=== PATIENT | female | born 1960 | race Caucasian/White ===

== ENCOUNTER 2023-01-08 16:52 | Inpatient (IN) | payer MEDICARE ==
[~2023-01-08] VITALS: Ht 162.6 cm; Wt 68.0 kg
[2023-01-08] MEDS ORDERED: KETOROLAC TROMETHAMINE INJ 30 MG/ML VIAL ONE (17:59)
[2023-01-08] MEDS ORDERED: KETOROLAC TROMETHAMINE INJ 60 MG/2 ML VIAL IM ONE (18:00)
[2023-01-08 19:53] LABS: BASOPHILS % (AUTO) 0.4 % (0.0-2.0); EOSINOPHILS % (AUTO) 0.6 % (0.0-6.0); HEMATOCRIT 35 % (33-45); HEMOGLOBIN 11.8 g/dL (11.5-14.8); LYMPHOCYTES # (AUTO) 1.4 K/uL (0.8-4.8); LYMPHOCYTES % (AUTO) 29.5 % (20.0-44.0); MEAN CORPUSCULAR HEMOGLOBIN 34 PG (26.0-33.0); MEAN CORPUSCULAR HGB CONC 34 g/dl (31.0-36.0); MEAN CORPUSCULAR VOLUME 101 fL (82-100); MONOCYTES # (AUTO) 0.5 K/uL (0.1-1.30); MONOCYTES % (AUTO) 10.6 % (2.0-12.0); NEUTROPHILS # (AUTO) 2.7 K/uL (1.8-8.9); NEUTROPHILS % (AUTO) 58.9 % (43.0-81.0); PLATELET COUNT (AUTO) 307 K/uL (150-450); RED BLOOD CELL COUNT(AUTO) 3.49 MIL/uL (4.0-5.2); RED CELL DISTRIBUTION WIDTH 13.1 % (11.5-15.0); WHITE BLOOD COUNT (AUTO) 4.6 K/uL (4.3-11.0)
[2023-01-08 20:03] LABS: CALCIUM, SERUM 9.2 mg/dL (8.5-10.1); CREATININE 0.9 mg/dL (0.6-1.3); POTASSIUM 3.6 mmol/L (3.5-5.1)
[2023-01-08 20:13] LABS: ALBUMIN 3.7 g/dL (3.4-5.0); BILIRUBIN,DIRECT 0.1 mg/dL (0.0-0.2); BILIRUBIN,TOTAL 0.4 mg/dL (0.2-1.0); TOTAL PROTEIN, SERUM 7.7 g/dL (6.4-8.2)
[2023-01-08 22:36] VITALS: BP 153/89; TEMP 98; O2SAT 95
[2023-01-08] MEDS ORDERED: ONDANSETRON HCL/PF 4 MG/2 ML VIAL IVP PRN (23:00)
[2023-01-08] MEDS ORDERED: ACETAMINOPHEN 325 MG TABLET PO PRN (23:00)
[2023-01-08] MEDS: HYDROCODONE/APAP 5/325MG TABLET PO PRN (23:06)
[2023-01-08] MEDS: ENOXAPARIN SODIUM 40 MG/0.4 ML DISP.SYRIN SQ SCH (23:06)
[2023-01-09 07:00] VITALS: BP 123/71; TEMP 97.7; O2SAT 96
[2023-01-09 07:40] LABS: BASOPHILS % (AUTO) 0.5 % (0.0-2.0); EOSINOPHILS % (AUTO) 1.3 % (0.0-6.0); HEMATOCRIT 34 % (33-45); HEMOGLOBIN 11.4 g/dL (11.5-14.8); LYMPHOCYTES # (AUTO) 1.3 K/uL (0.8-4.8); LYMPHOCYTES % (AUTO) 35.5 % (20.0-44.0); MEAN CORPUSCULAR HEMOGLOBIN 34 PG (26.0-33.0); MEAN CORPUSCULAR HGB CONC 34 g/dl (31.0-36.0); MEAN CORPUSCULAR VOLUME 100 fL (82-100); MONOCYTES # (AUTO) 0.5 K/uL (0.1-1.30); MONOCYTES % (AUTO) 12.4 % (2.0-12.0); NEUTROPHILS # (AUTO) 1.9 K/uL (1.8-8.9); NEUTROPHILS % (AUTO) 50.3 % (43.0-81.0); PLATELET COUNT (AUTO) 275 K/uL (150-450); RED BLOOD CELL COUNT(AUTO) 3.38 MIL/uL (4.0-5.2); RED CELL DISTRIBUTION WIDTH 13.5 % (11.5-15.0); WHITE BLOOD COUNT (AUTO) 3.7 K/uL (4.3-11.0)
[2023-01-09 08:00] LABS: MAGNESIUM 2.2 mg/dL (1.8-2.4); PHOSPHORUS 4.1 mg/dL (2.5-4.9); POTASSIUM 3.3 mmol/L (3.5-5.1)
[2023-01-09] MEDS: HYDROCODONE/APAP 5/325MG TABLET PO PRN (08:22)
[2023-01-09] MEDS ORDERED: OLAN15TA3 PO (08:51)
[2023-01-09] MEDS ORDERED: MAGN400O6 PO (08:51)
[2023-01-09] MEDS ORDERED: ATOR10TA PO (08:51)
[2023-01-09] MEDS ORDERED: ACET-868 PO (08:51)
[2023-01-09] MEDS ORDERED: BISA10SU11 RC (08:51)
[2023-01-09] MEDS ORDERED: EMTR1TAB17 PO (08:51)
[2023-01-09] MEDS ORDERED: ERGO500093 PO (08:51)
[2023-01-09] MEDS ORDERED: DOLU50TA PO (08:51)
[2023-01-09] MEDS ORDERED: FERR325T23 PO (08:51)
[2023-01-09] MEDS ORDERED: NA P133E RC (08:51)
[2023-01-09] MEDS ORDERED: POTASSIUM CHLORIDE 20 MEQ TAB.PRT.SR PO ONE (11:00)
[2023-01-09 16:00] VITALS: BP 144/77; TEMP 97.6; O2SAT 96
[2023-01-09] MEDS: MORPHINE SULFATE INJ 2 MG/ML DISP.SYRIN IV PRN (18:21)
[2023-01-09] MEDS: ENOXAPARIN SODIUM 40 MG/0.4 ML DISP.SYRIN SQ SCH (20:37)
[2023-01-09 21:11] VITALS: BP 121/76; TEMP 98.1; O2SAT 96
[2023-01-10] MEDS: MORPHINE SULFATE INJ 2 MG/ML DISP.SYRIN IV PRN (01:03)
[2023-01-10 07:00] VITALS: BP 147/74; TEMP 98.7; O2SAT 94
[2023-01-10] MEDS: HYDROCODONE/APAP 5/325MG TABLET PO PRN ×2 (10:26→21:24)
[2023-01-10 16:00] VITALS: BP 128/75; TEMP 98.6; O2SAT 94
[2023-01-10 20:00] VITALS: BP 142/84; TEMP 98.5; O2SAT 96
[2023-01-10 20:48] VITALS: BP 183/96; TEMP 98.5; O2SAT 96
[2023-01-11 08:00] VITALS: BP 132/74; TEMP 98.2; O2SAT 96
[2023-01-11] MEDS: HYDROCODONE/APAP 5/325MG TABLET PO PRN ×2 (08:26→13:34)
== END 2023-01-11 13:35 | DRG 538 ==
LOC: ER 16:59 → MED 20:29
PROVIDERS: ADMIT Nurse Practitioner Acute Care; ATTEND Internal Medicine
DX: S76.912A Strain of unspecified muscles, fascia and tendons at thigh level, left thigh, initial encounter (principal); E78.5 Hyperlipidemia, unspecified; I10 Essential (primary) hypertension; F20.9 Schizophrenia, unspecified; Z88.8 Allergy status to other drugs, medicaments and biological substances; D64.9 Anemia, unspecified; X58.XXXA Exposure to other specified factors, initial encounter; Y93.9 Activity, unspecified; Y92.89 Other specified places as the place of occurrence of the external cause
CPT/HCPCS: 36415; 73552; 73700-TC; 80048-TC; 80076-TC; 83735-TC; 84100-TC; 85025-TC; 85652-TC; 86140-TC; 87081-TC; 93971-TC; 97116-TC; 97530-TC; G0378; J1650; J1885; J2270

== ENCOUNTER 2023-09-20 18:55 | Inpatient (IN) | payer MEDICARE, OTHER ==
[~2023-09-20] VITALS: Ht 165.1 cm; Wt 67.1 kg
[~2023-09-20 18:55] MED LIST: ACET-868 PO; ATOR10TA PO; BISA10SU11 RC; DOLU50TA PO; EMTR1TAB17 PO; ERGO500093 PO; FERR325T23 PO; MAGN400O6 PO; NA P133E RC; OLAN15TA3 PO
[2023-09-20 20:43] LABS: BASOPHILS % (AUTO) 0.3 % (0.0-2.0); EOSINOPHILS % (AUTO) 0.5 % (0.0-6.0); HEMATOCRIT 36 % (33-45); HEMOGLOBIN 12.2 g/dL (11.5-14.8); LYMPHOCYTES # (AUTO) 1.3 K/uL (0.8-4.8); LYMPHOCYTES % (AUTO) 19.7 % (20.0-44.0); MEAN CORPUSCULAR HEMOGLOBIN 34 PG (26.0-33.0); MEAN CORPUSCULAR HGB CONC 34 g/dl (31.0-36.0); MEAN CORPUSCULAR VOLUME 101 fL (82-100); MONOCYTES # (AUTO) 0.8 K/uL (0.1-1.30); MONOCYTES % (AUTO) 11.4 % (2.0-12.0); NEUTROPHILS # (AUTO) 4.6 K/uL (1.8-8.9); NEUTROPHILS % (AUTO) 68.1 % (43.0-81.0); PLATELET COUNT (AUTO) 305 K/uL (150-450); RED BLOOD CELL COUNT(AUTO) 3.59 MIL/uL (4.0-5.2); RED CELL DISTRIBUTION WIDTH 13.6 % (11.5-15.0); WHITE BLOOD COUNT (AUTO) 6.8 K/uL (4.3-11.0)
[2023-09-20 20:54] LABS: INR 1.01 (0.91-1.10); PROTHROMBIN TIME 10.7 SECS (9.2-11.1)
[2023-09-20 21:11] LABS: CALCIUM, SERUM 9.1 mg/dL (8.5-10.1); CREATININE 1.1 mg/dL (0.6-1.3); POTASSIUM 3.3 mmol/L (3.5-5.1)
[2023-09-20 21:14] LABS: PARTIAL THROMBOPLASTIN TIME 29.1 SEC (24.3-34.3)
[2023-09-20 21:15] LABS: LACTIC ACID 0.9 mmol/L (0.4-2.0)
[2023-09-20 21:20] LABS: THYROID STIMULATING HORMONE 5.529 uIU/mL (0.358-3.74)
[2023-09-20 21:21] LABS: ALBUMIN 3.7 g/dL (3.4-5.0); BILIRUBIN,DIRECT 0.2 mg/dL (0.0-0.2); BILIRUBIN,TOTAL 0.6 mg/dL (0.2-1.0); TOTAL PROTEIN, SERUM 8.3 g/dL (6.4-8.2)
[2023-09-20 21:58] LABS: APPEARANCE,URINE SLIGHTLY CLOUDY (CLEAR); BILIRUBIN,URINE NEGATIVE (NEGATIVE); BLOOD, URINE 1+ Ery/uL (NEGATIVE); COLOR,URINE YELLOW (YELLOW); KETONES,URINE NEGATIVE (NEGATIVE); LEUKOCYTE ESTERASE ,URINE NEGATIVE (NEGATIVE); NITRITE, URINE POSITIVE (NEGATIVE); PROTEIN,URINE NEGATIVE (NEGATIVE); UGLUCOSE NEGATIVE (NEGATIVE); UROBILINOGEN,URINE 0.2 EU/dL (0.2)
[2023-09-20 22:04] LABS: ADD URINE CULTURE YES; BACTERIA,URINE 3+ /HPF (None Seen); WBC,URINE 0-2 /HPF (0-3)
[2023-09-20] MEDS ORDERED: CEFTRIAXONE 1GM BAG (ER ONLY) 50 ML IV ONE (23:38)
[2023-09-20] MEDS: CEFTRIAXONE 1 G in IV D5W 50 ML IV ONE (23:50)
[2023-09-20] MEDS: IV NS 0.9% 1,000 ML BAG IV ONE (23:50)
[2023-09-21] MEDS ORDERED: Z GUARD REMEDY 4 OZ OINT TP PRN (01:30)
[2023-09-21] MEDS ORDERED: NA PHOS,M-B/NA PHOS,DI-BA 1 EA ENEMA RC PRN (01:30)
[2023-09-21] MEDS ORDERED: ACETAMINOPHEN 325 MG TABLET PO PRN (01:30)
[2023-09-21] MEDS ORDERED: MAGNESIUM HYDROXIDE 30 ML UDC PO PRN (01:30)
[2023-09-21] MEDS ORDERED: ONDANSETRON HCL/PF 4 MG/2 ML VIAL IVP PRN (01:30)
[2023-09-21 03:00] VITALS: BP 129/66; TEMP 98.2; O2SAT 95
[2023-09-21] MEDS: IV D5/0.45 NACL 1,000 ML IV PRN (04:32)
[2023-09-21 08:00] VITALS: BP 117/104; TEMP 98.1; O2SAT 97
[2023-09-21] MEDS: FERROUS SULFATE (325 MG) 325 MG/TAB TABLET PO SCH (09:00)
[2023-09-21] MEDS: PANTOPRAZOLE 40 MG TABLET.DR PO SCH (09:19)
[2023-09-21] MEDS: ENOXAPARIN SODIUM 40 MG/0.4 ML DISP.SYRIN SQ SCH (09:24)
[2023-09-21 16:00] VITALS: BP 115/72; TEMP 98.1; O2SAT 97
[2023-09-21 20:00] VITALS: BP 120/62; TEMP 98.4; O2SAT 95
[2023-09-21] MEDS: OLANZAPINE 5 MG TABLET PO SCH (22:00)
[2023-09-21] MEDS: ATORVASTATIN 10 MG TABLET PO SCH (22:00)
[2023-09-21] MEDS: CEFTRIAXONE 1 G in IV D5W 50 ML IV SCH (22:02)
[2023-09-22 04:37] VITALS: O2SAT 98
[2023-09-22 07:44] LABS: BASOPHILS % (AUTO) 0.3 % (0.0-2.0); EOSINOPHILS % (AUTO) 0.3 % (0.0-6.0); HEMATOCRIT 32 % (33-45); HEMOGLOBIN 10.8 g/dL (11.5-14.8); LYMPHOCYTES # (AUTO) 1.3 K/uL (0.8-4.8); LYMPHOCYTES % (AUTO) 24.9 % (20.0-44.0); MEAN CORPUSCULAR HEMOGLOBIN 35 PG (26.0-33.0); MEAN CORPUSCULAR HGB CONC 34 g/dl (31.0-36.0); MEAN CORPUSCULAR VOLUME 102 fL (82-100); MONOCYTES # (AUTO) 0.7 K/uL (0.1-1.30); MONOCYTES % (AUTO) 12.7 % (2.0-12.0); NEUTROPHILS # (AUTO) 3.2 K/uL (1.8-8.9); NEUTROPHILS % (AUTO) 61.8 % (43.0-81.0); PLATELET COUNT (AUTO) 255 K/uL (150-450); RED BLOOD CELL COUNT(AUTO) 3.13 MIL/uL (4.0-5.2); RED CELL DISTRIBUTION WIDTH 13.4 % (11.5-15.0); WHITE BLOOD COUNT (AUTO) 5.2 K/uL (4.3-11.0)
[2023-09-22 08:00] VITALS: BP 139/65; TEMP 98.6; O2SAT 95
[2023-09-22 08:35] LABS: THYROID STIMULATING HORMONE 1.312 uIU/mL (0.358-3.74)
[2023-09-22] MEDS ORDERED: Medication Not On Formulary EA (Dolutegravir Sodium (Tivicay) 50 MG) PO SCH (09:00)
[2023-09-22 09:11] LABS: CALCIUM, SERUM 8.1 mg/dL (8.5-10.1); MAGNESIUM 1.9 mg/dL (1.8-2.4); PHOSPHORUS 2.6 mg/dL (2.5-4.9); POTASSIUM 3.3 mmol/L (3.5-5.1)
[2023-09-22 13:26] LABS: LYMPHOCYTES % (MANUAL) 26 % (16-48); MONOCYTES % (MANUAL) 15 % (0-11.0); NEUTROPHILS % (MANUAL) 59 (42-76); PLATELET ESTIMATE ADEQUATE
[2023-09-22 20:00] VITALS: BP 125/69; TEMP 98; O2SAT 100
[2023-09-23 07:32] LABS: BASOPHILS % (AUTO) 0.4 % (0.0-2.0); EOSINOPHILS % (AUTO) 0.4 % (0.0-6.0); HEMATOCRIT 32 % (33-45); LYMPHOCYTES # (AUTO) 0.9 K/uL (0.8-4.8); LYMPHOCYTES % (AUTO) 19.3 % (20.0-44.0); MEAN CORPUSCULAR HEMOGLOBIN 34 PG (26.0-33.0); MEAN CORPUSCULAR HGB CONC 34 g/dl (31.0-36.0); MEAN CORPUSCULAR VOLUME 102 fL (82-100); MONOCYTES # (AUTO) 0.5 K/uL (0.1-1.30); MONOCYTES % (AUTO) 11.1 % (2.0-12.0); NEUTROPHILS # (AUTO) 3.3 K/uL (1.8-8.9); NEUTROPHILS % (AUTO) 68.8 % (43.0-81.0); PLATELET COUNT (AUTO) 265 K/uL (150-450); RED BLOOD CELL COUNT(AUTO) 3.19 MIL/uL (4.0-5.2); RED CELL DISTRIBUTION WIDTH 13.7 % (11.5-15.0); WHITE BLOOD COUNT (AUTO) 4.8 K/uL (4.3-11.0)
[2023-09-23 08:00] VITALS: BP 148/90; TEMP 98; O2SAT 98
[2023-09-23 08:04] LABS: CALCIUM, SERUM 8.4 mg/dL (8.5-10.1); CREATININE 0.9 mg/dL (0.6-1.3); MAGNESIUM 2.1 mg/dL (1.8-2.4); PHOSPHORUS 2.8 mg/dL (2.5-4.9); POTASSIUM 3.3 mmol/L (3.5-5.1)
[2023-09-23] MEDS: EMTRICITABINE/TENOFOVIR 1 TAB PO SCH (11:36)
[2023-09-23] MEDS: POTASSIUM CHLORIDE 20 MEQ TAB.PRT.SR PO ONE (12:06)
[2023-09-23] MEDS: ENSURE ENLIVE CHOC 237 ML CAN PO SCH (12:06)
[2023-09-23] MEDS: DOLUTEGRAVIR SODIUM 50 MG PO SCH (14:17)
[2023-09-23 16:00] VITALS: BP 147/66; TEMP 99.7; O2SAT 98
[2023-09-23 20:16] VITALS: BP 140/78; TEMP 98.6; O2SAT 93
[2023-09-24 07:32] LABS: POTASSIUM 3.9 mmol/L (3.5-5.1)
[2023-09-24 07:49] LABS: CALCIUM, SERUM 8.4 mg/dL (8.5-10.1)
[2023-09-24 08:00] VITALS: BP 116/74; TEMP 99.1; O2SAT 96
[2023-09-24] MEDS: DESCOVY PO SCH (08:20)
[2023-09-24] MEDS ORDERED: CEPH500C2 PO (15:19)
[2023-09-24 16:00] VITALS: BP 122/78; TEMP 98.3; O2SAT 95
== END 2023-09-24 19:00 | DRG 689 ==
LOC: ER 18:55 → MED 09-21 01:42
PROVIDERS: ADMIT Nurse Practitioner Family; ATTEND Nurse Practitioner Acute Care
DX: N39.0 Urinary tract infection, site not specified (principal); G93.41 Metabolic encephalopathy; R62.7 Adult failure to thrive; E87.6 Hypokalemia; E78.5 Hyperlipidemia, unspecified; F20.9 Schizophrenia, unspecified; I10 Essential (primary) hypertension; D64.9 Anemia, unspecified; Z20.822 Contact with and (suspected) exposure to COVID-19; B96.89 Other specified bacterial agents as the cause of diseases classified elsewhere; Z68.24 Body mass index [BMI] 24.0-24.9, adult; R94.6 Abnormal results of thyroid function studies; R10.9 Unspecified abdominal pain
CPT/HCPCS: 36415; 70450-TC; 71045-TC; 72125-TC; 80048-TC; 80076-TC; 81001; 82140-TC; 82962-TC; 83605-TC; 83735-TC; 84100-TC; 84439-TC; 84443-TC; 84484-TC; 85025-TC; 85730-TC; 87081-TC; 87086-TC; 93307-TC; 97110-TC; 97530-TC; A4223; A6253; A6403; G0378; J0696; J1650; J3490; J7030; J7060